=== PATIENT | female | born 1995 | race African-American/Black ===

== ENCOUNTER 2022-01-24 07:16 | Emergency (ER) | payer MEDICAID ==
[~2022-01-24] VITALS: Ht 149.9 cm; Wt 79.0 kg
[2022-01-24 08:40] LABS: BASOPHILS % 0.8 % (0.0-2.0); EOSINOPHILS % 2.3 % (0.0-5.0); HEMATOCRIT. 42.9 % (36.0-48.0); LYMPHOCYTES % 30.7 % (20.0-50.0); MEAN CORPUSCULAR HEMOGLOBIN 29.5 pg (28.0-32.0); MEAN CORPUSCULAR VOLUME 90.2 fL (81.0-99.0); MONOCYTES % 9.9 % (2.0-8.0); NEUTROPHILS % 56.3 % (40.0-76.0); PLATELET 353 x1000/uL (130-400); RED BLOOD CELL COUNT 4.75 mill/uL (4.2-5.4); RED CELL DISTRIBUTION WIDTH 13.7 % (11.6-14.6)
[2022-01-24 08:47] LABS: CHLORIDE 106 mEq/L (98-107)
[2022-01-24 10:53] VITALS: BP 127/78
== END 2022-01-24 10:54 | disposition home or self-care (01) ==
LOC: ER 07:30
DX: R10.13 Epigastric pain (principal); R07.9 Chest pain, unspecified
CPT/HCPCS: 36415; 71046; 80053; 81025; 84484; 85025; 93005; 99285